=== PATIENT | male | born 1990 | race Caucasian/White ===

== ENCOUNTER 2020-02-10 14:04 | Emergency (ER) | payer OTHER ==
[~2020-02-10] VITALS: Ht 190.5 cm; Wt 108.9 kg
[2020-02-10] MEDS ORDERED: ACET500 PO (16:29)
[2020-02-10] MEDS ORDERED: AMOCLA875 PO (16:29)
[2020-02-10] MEDS ORDERED: Flonase 0.05% N16 GM (16:29)
== END 2020-02-10 16:48 | disposition home or self-care (01) ==
LOC: ER 14:04
DX: J32.9 Chronic sinusitis, unspecified (principal); K08.89 Other specified disorders of teeth and supporting structures; F17.210 Nicotine dependence, cigarettes, uncomplicated
CPT/HCPCS: 99282; A9270